=== PATIENT | male | born 1980 | race Caucasian/White ===

== ENCOUNTER 2018-02-11 01:13 | Inpatient (IN) ==
[2018-02-11] MEDS ORDERED: Isovue-370 500 ML INFUS..BTL IV ONE (02:12)
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
[2018-02-11] MEDS ORDERED: *HR* FentaNYL (PF) 100 MCG/2 ML VIAL IVP ONE (02:17)
[2018-02-11 02:47] LABS: Basophils % 0.3 %; Eosinophils # 0.2 K/mcL (0.0-0.6); Eosinophils % 1.3 %; Hematocrit 46.2 % (37.5-50.1); Immature Granulocytes % 0.4 % (0-4); Lymphocytes # 2.2 K/mcL (0.6-4.6); Lymphocytes % 16.2 %; Mean Corpuscular HGB Conc 34.6 g/dL (31.6-35.5); Mean Corpuscular Hemoglobin 32.4 pg (28.0-33.3); Mean Corpuscular Volume 93.5 fL (83.0-100.0); Mean Platelet Volume 9.6 fL (9.4-12.4); Monocytes # 1.3 K/mcL (0.0-1.3); Monocytes % 9.7 %; Neutrophils # 9.6 K/mcL (1.6-8.9); Platelet Count 274 K/mcL (140-400); Red Blood Count 4.94 M/mcL (4.19-5.50); Red Cell Distribution Width 13.3 % (11.5-14.5); Segmented Neutrophils % 72.1 %
[2018-02-11 02:52] LABS: Bilirubin,Urine Negative (Negative); Blood,Urine Negative (Negative); Clarity,Urine Clear (Clear); Color,Urine Yellow (Yellow); Glucose,Urine (UA) Normal (Normal); Ketones,Urine Negative (Negative); Leukocyte Esterase,Urine Trace (Negative); Nitrite,Urine Negative (Negative); Protein,Urine Trace mg/dL (Neg-Trace); Specific Gravity,Urine 1.017 (1.010-1.025); Urobilinogen,Urine Normal (Normal)
[2018-02-11 02:54] LABS: Bacteria,Urine None Seen per hpf (None-Few); Hyaline Casts,Urine None Seen per lpf (None-Few); Squamous Epithelial Cell,Urine Many per lpf (None-Few)
[2018-02-11 03:08] LABS: Alanine Aminotransferase 37 Units/L (7-52); Albumin 3.9 g/dL (3.5-5.7); Albumin/Globulin Ratio 1.4 (1.1-2.2); Alkaline Phosphatase 57 Units/L (34-104); Aspartate Amino Transferase 16 Units/L (13-39); BUN/Creatinine Ratio 9 (6-26); Bilirubin,Direct 0.1 mg/dL (0.0-0.2); Bilirubin,Indirect 0.6 mg/dL (0.0-1.2); Bilirubin,Total 0.7 mg/dL (0.3-1.0); Blood Urea Nitrogen 10 mg/dL (6-20); Calcium 8.8 mg/dL (8.6-10.3); Carbon Dioxide 24 mEq/L (23-29); Chloride 105 mEq/L (98-107); Creatine Kinase 108 Units/L (30-223); Globulin 2.8 g/dL (2.4-3.5); Glucose 131 mg/dL (70-105); Lipase 27 Units/L (11-82); Osmolality,Calculated 287 (280-300); Potassium 3.5 mEq/L (3.5-5.1); Sodium 138 mEq/L (136-145); Total Protein 6.7 g/dL (6.4-8.9); eGFR For Non-African Americans > 60 (> 60)
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
[2018-02-11] MEDS ORDERED: Piperacillin/Tazobactam 3.375 GM in 0.9 % Sodium Chloride Mini Bag 100 ML IVPB ONE (04:38)
[2018-02-11] MEDS ORDERED: *HR* Morphine Immed Rel 30 MG TABLET PO ONE (04:58)
[2018-02-11] MEDS ORDERED: Naloxone 0.4 MG/ML INJ IVP PRN (08:44)
[2018-02-11] MEDS ORDERED: Ketorolac 30 MG/ML VIAL IVP PRN (08:49)
[2018-02-11] MEDS ORDERED: OXYCODONE Oral CONC 10 MG/0.5 ML ORAL.SYG SL PRN (08:49)
[2018-02-11] MEDS ORDERED: *HR* Promethazine 25 MG/ML VIAL IVP PRN (08:58)
[2018-02-11] MEDS ORDERED: metroNIDAZOLE 500 MG TABLET PO SCH (09:00)
[2018-02-11] MEDS: 0.9 % Sodium Chloride 1,000 ML IVC SCH ×2 (09:29→16:30)
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
--- NOTE | 2018-02-11 15:17 | Internal Med History&Physical ---
Date of Encounter: 02/11/18 Time of Encounter: 08:00 Internal Medicine - H&P: HPI Chief complaint: Abdominal pain Admitted From: Emergency Dept Plans for Post Hospital Care: Home History of present illness: Mr. Webb is a 37 year old male w/PMH of HTN and GERD presents from the ED with chief complaint of abdominal pain since Thursday. Patient states symptoms have never happened before. Denies nausea, vomiting, fever, chills. Patient went to urgent care on Thursday and was placed on by mouth ciprofloxacin and Flagyl. Sx did not improve. No alleviating or aggravating factors. Denies bleeding. Reports trying to have BM yesterday when pain became severe. States pain is so bad he has difficulty walking. Patient denies recent illness, headache, changes in vision, cough, chest congestion, diarrhea, constipation, dizziness, lightheadedness, numbness, tingling, pre-syncope, or syncope. Past Med Surg Social Fam HX - Past Medical History Source: patient, old records reviewed, obtained from family Medical history: GERD, hypertension Psychiatric history: no psych history - Past Surgical History Surgical History: no surgical history - Social History Smoking Status: Never smoker Smokeless Tobacco Status: Yes Alcohol use: none Drug use: none Occupational status: employed Current living situation: Home, With Family Activity Level: Independent ambulation, Very active Recent Out of Country Travel Within the Last 8 Weeks: No Exposure or Possible Exposure to Illness During Travel: No - Family History Mother Race: Family Member Ethnicity: Non- Living Status: Still Living Hx Family Respiratory Disorders: Yes (COPD/Emphysema) Father History Unknown: Yes Race: Family Member Ethnicity: Non- Living Status: Still Living Sister Race: Family Member Ethnicity: Non- Living Status: Age at : 8 Cause of : Accident Internal Medicine - H&P: Meds Ranitidine HCl [Acid Aircraft Maintenance Supervisor] 150 mg PO BID 02/11/18 [History] 3 Allergy/AdvReac Type Severity Reaction Status Date / Time No Known Allergies Allergy Verified 02/11/18 01:16 All Systems PM: A 10-system review of systems was performed and is negative for pertinent findings except as documented above in the HPI. - Constitutional Constitutional: no chills, no fever(s), no night sweats - EENT Eyes: no change in vision, no discharge, no pain, no photophobia Ears: no ear discharge, no ear pain, no tinnitus Nose, mouth and throat: no dysphagia, no nasal discharge, no neck pain, no sore throat - Breasts Breasts: as per HPI - Cardiovascular Cardiovascular ROS IM: no chest pain, no diaphoresis, no dyspnea, no lightheadedness, no palpitations, no syncope - Respiratory Respiratory: no cough, no dyspnea, no wheezing, no excessive phlegm production - Gastrointestinal Gastrointestinal: as per HPI, abdominal pain, no diarrhea, no hematemesis, no hematochezia, no melena, no nausea, no vomiting - Genitourinary Genitourinary ROS male: as per HPI - Musculoskeletal Musculoskeletal ROS IM: no numbness, no tingling - Integumentary Integumentary IM: no rash, no unusual bruising - Neurological Neurological ROS: no confusion, no convulsions, no focal weakness, no numbness, no tingling, no tremor(s) - Psychiatric Psychiatric: as per HPI - Endocrine Endocrine IM: as per HPI - Hematologic/Lymphatic Hematologic/Lymphatic: no easy bruising - Allergic/Immunologic Allergic/Immunologic: as per HPI - Constitutional Vitals: Temp Pulse Resp BP Pulse Ox 98.8 F 82 18 132/84 97 02/11/18 12:06 02/11/18 12:06 02/11/18 12:06 02/11/18 12:06 02/11/18 12:06 General appearance: Present: cooperative, A&O X 3, pleasant, obese, severe distress (Abdominal pain), answers questions appropriately - Head Head exam: Present: atraumatic, normocephalic - Eye Eye exam: Present: PERRL, conjuntiva pink, sclera anicteric Pupils: Present: PERRL - ENT ENT exam: Present: normal exam - Neck Neck exam general surgery: Present: supple, trachea midline. Absent: lymphadenopathy - Respiratory Respiratory exam: Present: CTAB. Absent: accessory muscle use, rales, rhonchi, wheezes - Cardiovascular Cardiovascular exam: Present: RRR, +S1, +S2. Absent: diastolic murmur, gallop, rubs, systolic murmur - GI/Abdominal GI/Abdominal exam: Present: guarding, normal bowel sounds, soft, tenderness, no peritoneal signs. Absent: distended - Rectal Rectal exam: Present: deferred - Additional comments: exam deferred. - Extremities Exam Extremities exam: Present: warm, radial pulses palpable and symmetrical. Absent : calf tenderness, cyanotic, pedal edema - Back Exam Back exam: Present: normal inspection - Neurological Exam Neurological exam: Present: alert, CN II-XII intact, oriented X3, no focal deficits. Absent: pronater drift, facial droop, speech deficit - Psychiatric Psychiatric exam: Present: anxious - Skin Skin exam: Present: dry, intact Internal Med - H&P Results - Labs CBC & Chem 7: 02/11/18 02:24 02/11/18 02:24 - Diagnostic Studies CT scan - abdomen Additional comments: Impressions Abdomen/Pelvis CT 02/11/18 02:12 IMPRESSION: Findings are consistent with perforated sigmoid diverticulitis. Critical results were called by Dr. Robert Medina MD to Dr. Viera On 02/11/2018 at 04:33. D/ / Robert Medina MD / Robert Medina MD Interpreting Provider: Robert Medina MD - Assessment and plan (1) Perforation of sigmoid colon due to diverticulitis Current Visit: Yes Status: Acute Assessment and plan: Acute perforation of sigmoid colon due to diverticulitis according to CT of the abdomen/pelvis today. Patient failed outpatient oral antibiotic therapy likely due to severity of perforation. Currently patient does not appear toxic however he reports severe abdominal pain. Surgery consult ordered in ED and I appreciate the consult and recommendations. ID consult ordered and I appreciate the consult and recommendations. Patient placed on IVPB Zosyn in ED which is been discontinued per surgery. Patient received IVPB Flagyl and ciprofloxacin. Serial abdominal exams. Monitor a.m. labs. No plan for acute surgery but surgery will continue to follow. Stair-step pain medication for pain management. Nothing by mouth except ice chips and medications. Falls/ safety precautions and up with assist due to patient's report of difficulty with ambulation due to severe pain. Patient discussed with Dr. Bailon who agrees with plan of care. Patient is high risk due to new onset of perforated sigmoid diverticulitis, current leukocytosis, severe abdominal pain, high risk for sepsis, and risk factors. Inpatient. (2) Leukocytosis Current Visit: Yes Status: Acute Assessment and plan: Acute leukocytosis of 13.3 on admission likely secondary to perforated diverticulitis. Monitor patient and follow-up labs for signs of sepsis. Qualifiers: Leukocytosis type: unspecified Qualified Code(s): D72.829 - Elevated white blood cell count, unspecified (3) Abdominal pain Current Visit: Yes Status: Acute Assessment and plan: Acute abdominal pain that is generalized and likely secondary to diverticulitis. Stair-step pain medications for pain management. IVP Phenergan 12.5 mg every 6 hours when necessary for nausea and vomiting. Protonix 40 mg IVP daily per Surgery. Qualifiers: Abdominal location: periumbilical Qualified Code(s): R10.33 - Periumbilical pain (4) GERD (gastroesophageal reflux disease) Current Visit: Yes Status: Chronic Assessment and plan: Hx of chronic GERD. Protonix 40 mg IVP daily per surgery. Qualifiers: Esophagitis presence: esophagitis presence not specified Qualified Code(s) : K21.9 - Gastro-esophageal reflux disease without esophagitis (5) HTN (hypertension) Current Visit: Yes Status: Chronic Assessment and plan: Hx. of chronic HTN. Patient does not currently take HTN medication. Monitor patient vital signs. Hydralazine IVP 10 mg every 6 hours when necessary with parameters. Qualifiers: Hypertension type: essential hypertension Qualified Code(s): I10 - Essential (primary) hypertension (6) DVT prophylaxis Current Visit: Yes Status: Acute Assessment and plan: Bilateral SCDs on patient's LEs for DVT prophylaxis. - Time Spent With Patient Total time spent is greater than 50% in coordination of care (as documented) at patient's floor/unit and/or counseling patient: Greater than 35 minutes
--- NOTE | 2018-02-11 15:21 | Event Note ---
Date of Encounter: 02/11/18 Time of Encounter: 09:30 I have performed a face- to face examination of this patient and participated in formulation of aggarwal components of Assessment and plan with the GAMING WORKER. Briefly is a 37-year-old male with a first episode of perforated sigmoid diverticulitis. He is on IV antibiotics and his abdominal exam does show tenderness to palpation, guarding, peritoneal signs. His vital signs are stable and Gen. surgery has been consulted. I explained to the patient that given his young age and the perforation he might benefit from undergoing a full surgical evaluation with possible prophylactic sigmoid colectomy in the near future. We will defer the finality of these decisions to the surgical team. For now we will continue IV antibiotics and IV hydration. Keep him nothing by mouth until a surgical plan as created. Full H&P to follow.
[2018-02-11] MEDS ORDERED: Piperacillin/Tazobactam 3.375 GM in 0.9 % Sodium Chloride Mini Bag 100 ML IVPB SCH (16:00)
[2018-02-11] MEDS: MetroNIDAZOLE 500 MG/100 ML 500 MG/100 ML BAG IVPB SCH (17:00)
[2018-02-12] MEDS: MetroNIDAZOLE 500 MG/100 ML 500 MG/100 ML BAG IVPB SCH ×4 (00:09→23:39)
[2018-02-12] MEDS: 0.9 % Sodium Chloride 1,000 ML IVC SCH ×2 (04:07→16:15)
[2018-02-12 06:15] LABS: Basophils # 0.1 K/mcL (0.0-0.2); Basophils % 0.4 %; Eosinophils # 0.2 K/mcL (0.0-0.6); Eosinophils % 1.3 %; Hematocrit 43.7 % (37.5-50.1); Hemoglobin 14.8 g/dL (12.9-16.9); Immature Granulocytes % 0.4 % (0-4); Lymphocytes # 2.2 K/mcL (0.6-4.6); Lymphocytes % 17.1 %; Mean Corpuscular HGB Conc 33.9 g/dL (31.6-35.5); Mean Corpuscular Volume 94.4 fL (83.0-100.0); Mean Platelet Volume 9.4 fL (9.4-12.4); Monocytes # 1.4 K/mcL (0.0-1.3); Monocytes % 10.8 %; Neutrophils # 9.1 K/mcL (1.6-8.9); Platelet Count 265 K/mcL (140-400); Red Blood Count 4.63 M/mcL (4.19-5.50); Red Cell Distribution Width 13.3 % (11.5-14.5)
[2018-02-12 06:28] LABS: Alanine Aminotransferase 22 Units/L (7-52); Albumin 3.4 g/dL (3.5-5.7); Albumin/Globulin Ratio 1.3 (1.1-2.2); Alkaline Phosphatase 47 Units/L (34-104); Aspartate Amino Transferase 9 Units/L (13-39); BUN/Creatinine Ratio 10 (6-26); Bilirubin,Total 0.9 mg/dL (0.3-1.0); Blood Urea Nitrogen 10 mg/dL (6-20); Calcium 8.2 mg/dL (8.6-10.3); Carbon Dioxide 22 mEq/L (23-29); Chloride 108 mEq/L (98-107); Chol/HDL Ratio 5.6 (0-4.9); Cholesterol 151 mg/dL (< 200); Globulin 2.7 g/dL (2.4-3.5); Glucose 93 mg/dL (70-105); HDL Cholesterol 27 mg/dL (40-59); LDL Cholesterol,Calculated 102 mg/dL (0-99); Osmolality,Calculated 289 (280-300); Potassium 3.7 mEq/L (3.5-5.1); Sodium 140 mEq/L (136-145); Total Protein 6.1 g/dL (6.4-8.9); Triglycerides 110 mg/dL (< 150); eGFR For Non-African Americans > 60 (> 60)
[2018-02-12 07:59] LABS: Estimated Average Glucose 105 mg/dl; Hemoglobin A1C 5.3 %
[2018-02-12] MEDS: Pantoprazole 40 MG VIAL IVP SCH (08:18)
--- NOTE | 2018-02-12 08:27 | Event Note ---
Date of Encounter: 02/12/18 Time of Encounter: 08:26 Chart reviewed. Antibiotics changed by the general surgery team. No further recommendations from the ID team. Will sign off. Please re-consult if needed.
--- NOTE | 2018-02-12 10:27 | General Surgery Progress Note ---
<MalheurEva Fiona - Last Filed: 02/12/18 10:25> Date of Encounter: 02/12/18 Time of Encounter: 10:15 - Assessment and Plan (1) Perforation of sigmoid colon due to diverticulitis Current Visit: Yes Status: Acute Continue with conservative measures as patient has significant improvement May trial clear liquids today IV antibiotics- cipro and flagyl IV fluids- management per primary team Serial abdominal exams Supportive care IS every 1 hour while awake Ambulate hallways TID Patient will need an interval colonoscopy in 6-8 weeks (2) Leukocytosis Current Visit: Yes Status: Acute WBC 13.3>12.9 Repeat am CBC Qualifiers: Leukocytosis type: unspecified Qualified Code(s): D72.829 - Elevated white blood cell count, unspecified (3) GERD (gastroesophageal reflux disease) Current Visit: Yes Status: Chronic PPI therapy daily Qualifiers: Esophagitis presence: esophagitis presence not specified Qualified Code(s) : K21.9 - Gastro-esophageal reflux disease without esophagitis (4) DVT prophylaxis Current Visit: Yes Status: Acute EPCDs to bilateral lower extremities for DVT prophylaxis Ambulate hallways TID Subjective Patient reports: no new complaints, feels better, still having pain, pain is less, voiding w/o difficulty, no flatus, bowel movement (X 6), fever (Tmax 100, Tcurrent 99.4) Objective Vital Signs - Last 8 Hours Temp Pulse Resp BP Pulse Ox 02/12/18 08:45 95 02/12/18 06:52 99.4 F 77 15 124/76 95 02/12/18 03:29 98.3 F 81 16 105/65 93 Intake and Output 02/11/18 02/12/18 02/12/18 23:59 07:59 15:59 Intake Total 2300 / 2300 100 / 100 Balance 2300 / 2300 100 / 100 Intake: IV Fluids 2300 / 2300 100 / 100 0.9 % Sodium Chloride 1,000 ML 2000 / 2000 @ 150 mls/hr IVC .[id number] [facility] Rx #:[id number] Cipro Premix 400 MG/200 ML 400 200 / 200 mg In 200 ml @ 200 mls/hr IVPB Q12HR [facility] Rx#:[id number] Flagyl Premix 500 MG/100 ML 500 100 / 100 100 / 100 mg In 100 ml @ 100 mls/hr IVPB Q8HR [facility] Rx#:[id number] - General physical appearance well developed, well nourished, no distress - Eyes normal ocular movement - ENT normal mucosa, atraumatic, normocephalic - Neck Neck exam: trachea midline - Respiratory normal expansion, normal respiratory effort, clear to auscultation - Cardiovascular Cardiovascular exam: Present: RRR - Abdomen Abdomen: Present: bowel sounds present, soft, tender (minimal and improving) Abdominal Tenderness: suprapubic - Neurologic CN 2-12 grossly intact - Psychiatric oriented to time, oriented to person, oriented to place, speech is normal, memory intact - Labs 02/12/18 05:41 02/12/18 05:41 Diabetes panel 02/12/18 02/12/18 Range/Units 05:41 05:41 Sodium 140 (136-145) mEq/L Potassium 3.7 (3.5-5.1) mEq/L Chloride 108 H (98-107) mEq/L Carbon Dioxide 22 L (23-29) mEq/L BUN 10 (6-20) mg/dL Creatinine 1.00 (0.70-1.30) mg/dL Glucose 93 (70-105) mg/dL Hemoglobin A1c 5.3 ( - 5.6) % Calcium 8.2 L (8.6-10.3) mg/dL AST 9 L (13-39) Units/L ALT 22 (7-52) Units/L Alkaline Phosphatase 47 (34-104) Units/L Albumin 3.4 L (3.5-5.7) g/dL Triglycerides 110 (< 150) mg/dL HDL Cholesterol 27 L (40-59) mg/dL Calcium panel 02/12/18 Range/Units 05:41 Calcium 8.2 L (8.6-10.3) mg/dL Albumin 3.4 L (3.5-5.7) g/dL Pituitary panel 02/12/18 Range/Units 05:41 Sodium 140 (136-145) mEq/L Potassium 3.7 (3.5-5.1) mEq/L Chloride 108 H (98-107) mEq/L Carbon Dioxide 22 L (23-29) mEq/L BUN 10 (6-20) mg/dL Creatinine 1.00 (0.70-1.30) mg/dL Glucose 93 (70-105) mg/dL Calcium 8.2 L (8.6-10.3) mg/dL Adrenal panel 02/12/18 Range/Units 05:41 Sodium 140 (136-145) mEq/L Potassium 3.7 (3.5-5.1) mEq/L Chloride 108 H (98-107) mEq/L Carbon Dioxide 22 L (23-29) mEq/L BUN 10 (6-20) mg/dL Creatinine 1.00 (0.70-1.30) mg/dL Glucose 93 (70-105) mg/dL Calcium 8.2 L (8.6-10.3) mg/dL Total Bilirubin 0.9 (0.3-1.0) mg/dL AST 9 L (13-39) Units/L ALT 22 (7-52) Units/L Alkaline Phosphatase 47 (34-104) Units/L Albumin 3.4 L (3.5-5.7) g/dL Consult Discharge Plan - Plan Additional Instructions: Low fiber diet for the next 6-8 weeks Referrals: NONE,PCP [Primary Care Provider] - Wali Murray MD [Non-Partnered Physician] - 02/24/18 2:05 pm (hospital follow -up; discuss colonoscopy) Prescriptions: Ciprofloxacin [Cipro] 500 mg PO BID #20 tablet metroNIDAZOLE [Flagyl] 500 mg PO TID #30 tablet - Attending Attestation For this encounter, I have reviewed the CONVEYOR OPERATOR or PA documentation, treatment plan, and medical decision making; and I have had face to face time with this patient. <Wali Murray - Last Filed: 02/12/18 16:06> Date of Encounter: 02/12/18 - Assessment and Plan (1) Diverticulitis Current Visit: Yes Status: Acute (2) Leukocytosis Current Visit: Yes Status: Acute Qualifiers: Leukocytosis type: unspecified Qualified Code(s): D72.829 - Elevated white blood cell count, unspecified (3) GERD (gastroesophageal reflux disease) Current Visit: Yes Status: Chronic Qualifiers: Esophagitis presence: esophagitis presence not specified Qualified Code(s) : K21.9 - Gastro-esophageal reflux disease without esophagitis (4) Abdominal pain Current Visit: Yes Status: Acute Qualifiers: Abdominal location: periumbilical Qualified Code(s): R10.33 - Periumbilical pain Objective Vital Signs - Last 8 Hours Temp Pulse Resp BP Pulse Ox 02/12/18 15:31 99.2 F 72 18 138/94 99 02/12/18 11:08 99.0 F 85 15 127/79 97 02/12/18 08:45 95 Intake and Output 02/12/18 02/12/18 02/12/18 07:59 15:59 23:59 Intake Total 100 / 100 Balance 100 / 100 Intake: IV Fluids 100 / 100 Flagyl Premix 500 MG/100 ML 500 100 / 100 mg In 100 ml @ 100 mls/hr IVPB Q8HR [facility] Rx#:[id number] - Labs 02/12/18 05:41 02/12/18 05:41 Diabetes panel 02/12/18 02/12/18 Range/Units 05:41 05:41 Sodium 140 (136-145) mEq/L Potassium 3.7 (3.5-5.1) mEq/L Chloride 108 H (98-107) mEq/L Carbon Dioxide 22 L (23-29) mEq/L BUN 10 (6-20) mg/dL Creatinine 1.00 (0.70-1.30) mg/dL Glucose 93 (70-105) mg/dL Hemoglobin A1c 5.3 ( - 5.6) % Calcium 8.2 L (8.6-10.3) mg/dL AST 9 L (13-39) Units/L ALT 22 (7-52) Units/L Alkaline Phosphatase 47 (34-104) Units/L Albumin 3.4 L (3.5-5.7) g/dL Triglycerides 110 (< 150) mg/dL HDL Cholesterol 27 L (40-59) mg/dL Calcium panel 02/12/18 Range/Units 05:41 Calcium 8.2 L (8.6-10.3) mg/dL Albumin 3.4 L (3.5-5.7) g/dL Pituitary panel 02/12/18 Range/Units 05:41 Sodium 140 (136-145) mEq/L Potassium 3.7 (3.5-5.1) mEq/L Chloride 108 H (98-107) mEq/L Carbon Dioxide 22 L (23-29) mEq/L BUN 10 (6-20) mg/dL Creatinine 1.00 (0.70-1.30) mg/dL Glucose 93 (70-105) mg/dL Calcium 8.2 L (8.6-10.3) mg/dL Adrenal panel 02/12/18 Range/Units 05:41 Sodium 140 (136-145) mEq/L Potassium 3.7 (3.5-5.1) mEq/L Chloride 108 H (98-107) mEq/L Carbon Dioxide 22 L (23-29) mEq/L BUN 10 (6-20) mg/dL Creatinine 1.00 (0.70-1.30) mg/dL Glucose 93 (70-105) mg/dL Calcium 8.2 L (8.6-10.3) mg/dL Total Bilirubin 0.9 (0.3-1.0) mg/dL AST 9 L (13-39) Units/L ALT 22 (7-52) Units/L Alkaline Phosphatase 47 (34-104) Units/L Albumin 3.4 L (3.5-5.7) g/dL - Attending Attestation I have personally seen and examined the patient. I have reviewed pertinent labs , imaging, progress notes, including this one. I agree with the above assessment and plan and wish to include the following... wbc improved; afebrile; significant decrease in pain; VSS okay for clears; may advance diet over the weekend follow up with me in 2 weeks to schedule for interval colonoscopy
--- NOTE | 2018-02-12 10:57 | Internal Med Progress Note ---
Hospitalist Progress Note - Encounter Date of Encounter: 02/12/18 Time of Encounter: 10:00 - Subjective Interval History: Patient seen and examined at bedside. Pt. resting comfortably in bed and states that his pain is much improved since yesterday, rating it as a 1/10. States he can ambulate better and has been up out of bed several times w/o incident or pain. Reports abdominal pain is now minimizing. Discussed improvement in WBC from 13.3 to 12.9 today and how we will continue IVPB ciprofloxacin and Flagyl. Patient was seen by surgery with recommendation to advance to clears and ambulation TID. Pt. expresses understanding and agreement w/discussed plan of care. - Exam Vitals: Temp Pulse Resp BP Pulse Ox 99.4 F 77 15 124/76 95 02/12/18 06:52 02/12/18 06:52 02/12/18 06:52 02/12/18 06:52 02/12/18 08:45 Exam: PHYSICAL EXAMINATION: GENERAL: The patient is a well-developed, well-nourished male in no apparent distress. Alert and oriented x3. HEENT: Head is normocephalic and atraumatic. Extraocular muscles are intact. Pupils are equal, round, and reactive to light and accommodation. Nares appeared normal. Mouth is well hydrated and without lesions. Mucous membranes are moist. NECK: Supple. No carotid bruits. No lymphadenopathy or thyromegaly. LUNGS: Clear to auscultation. HEART: Regular rate and rhythm without murmur. ABDOMEN: Soft, and nondistended. Positive bowel sounds. No hepatosplenomegaly was noted. Some tenderness noted to generalized abdominal area. Abdomen is not rigid. EXTREMITIES: Without any cyanosis, clubbing, rash, lesions or edema. NEUROLOGIC: Cranial nerves II through XII are grossly intact. PSYCHIATRIC: Normal mood and affect. - Assessment and Plan (1) Perforation of sigmoid colon due to diverticulitis Current Visit: Yes Status: Acute Assessment and Plan: WBC improved to 12.9 today from 13.3 yesterday. Patient receiving IVPB Flagyl and ciprofloxacin. Serial abdominal exams. Still no plan for acute surgery but surgery will continue to follow. Stair-step pain medication for pain management. Diet to be advanced to clears per Surgery.Pt reports ambulating several times today and states that he is able to walk w/o the level of pain that he had yesterday. Encouraged to ambulate TID. (2) Leukocytosis Current Visit: Yes Status: Acute Assessment and Plan: WBC improved to 12.9 today from 13.3 yesterday. Continue IVPB ciprofloxacin and Flagyl. Monitor patient and follow-up labs. (3) Abdominal pain Current Visit: Yes Status: Acute Assessment and Plan: Much improved according to pt. Rates pain as 1/10 on exam. Continue stair-step pain medications for pain management. IVP Phenergan 12.5 mg every 6 hours when necessary for nausea and vomiting. Protonix 40 mg IVP daily per Surgery. (4) GERD (gastroesophageal reflux disease) Current Visit: Yes Status: Chronic Assessment and Plan: Hx of chronic GERD. Protonix 40 mg IVP daily per surgery. (5) HTN (hypertension) Current Visit: Yes Status: Chronic Assessment and Plan: Hx. of chronic HTN. Patient does not currently take HTN medication. Monitor patient vital signs. Hydralazine IVP 10 mg every 6 hours when necessary with parameters. (6) DVT prophylaxis Current Visit: Yes Status: Acute Assessment and Plan: Bilateral SCDs on patient's LEs for DVT prophylaxis. - Time Spent with Patient Total time spent is greater than 50% in coordination of care (as documented) at patient's floor/unit and/or counseling patient: less than 15 minutes Plan of Care Discussed with: patient Internal Medicine: Result - Labs CBC & Chem 7: 02/12/18 05:41 02/12/18 05:41 Labs: Short CBC 02/12/18 Range/Units 05:41 WBC 12.9 H (4.3-11.1) K/mcL Hgb 14.8 (12.9-16.9) g/dL Hct 43.7 (37.5-50.1) % Plt Count 265 (140-400) K/mcL Neutrophils # 9.1 H (1.6-8.9) K/mcL BMP 02/12/18 05:41 Sodium 140 Potassium 3.7 Chloride 108 H Carbon Dioxide 22 L BUN 10 Creatinine 1.00 Glucose 93 Calcium 8.2 L Liver Function 02/12/18 Range/Units 05:41 Total Bilirubin 0.9 (0.3-1.0) mg/dL AST 9 L (13-39) Units/L ALT 22 (7-52) Units/L Alkaline Phosphatase 47 (34-104) Units/L Albumin 3.4 L (3.5-5.7) g/dL Consult Discharge Plan - Plan Additional Instructions: Low fiber diet for the next 6-8 weeks Referrals: Wali Murray MD [Non-Partnered Physician] - 02/24/18 2:05 pm (hospital follow -up; discuss colonoscopy) NONE,PCP [Primary Care Provider] - Prescriptions: Ciprofloxacin [Cipro] 500 mg PO BID #20 tablet metroNIDAZOLE [Flagyl] 500 mg PO TID #30 tablet (2) Leukocytosis Qualifiers: Leukocytosis type: unspecified Qualified Code(s): D72.829 - Elevated white blood cell count, unspecified (3) Abdominal pain Qualifiers: Abdominal location: periumbilical Qualified Code(s): R10.33 - Periumbilical pain (4) GERD (gastroesophageal reflux disease) Qualifiers: Esophagitis presence: esophagitis presence not specified Qualified Code(s): K21.9 - Gastro-esophageal reflux disease without esophagitis (5) HTN (hypertension) Qualifiers: Hypertension type: essential hypertension Qualified Code(s): I10 - Essential (primary) hypertension
[2018-02-13 05:51] LABS: Basophils # 0.1 K/mcL (0.0-0.2); Basophils % 0.6 %; Eosinophils # 0.3 K/mcL (0.0-0.6); Eosinophils % 2.2 %; Hemoglobin 14.5 g/dL (12.9-16.9); Immature Granulocytes % 0.4 % (0-4); Lymphocytes # 2.8 K/mcL (0.6-4.6); Lymphocytes % 22.9 %; Mean Corpuscular HGB Conc 34.5 g/dL (31.6-35.5); Mean Corpuscular Volume 92.7 fL (83.0-100.0); Mean Platelet Volume 9.3 fL (9.4-12.4); Monocytes # 1.1 K/mcL (0.0-1.3); Monocytes % 8.8 %; Platelet Count 291 K/mcL (140-400); Red Blood Count 4.53 M/mcL (4.19-5.50); Red Cell Distribution Width 13.3 % (11.5-14.5); Segmented Neutrophils % 65.1 %
[2018-02-13 06:04] LABS: Neutrophils # 7.9 K/mcL (1.6-8.9)
[2018-02-13 06:15] LABS: Alanine Aminotransferase 19 Units/L (7-52); Albumin 3.2 g/dL (3.5-5.7); Albumin/Globulin Ratio 1.1 (1.1-2.2); Alkaline Phosphatase 50 Units/L (34-104); Aspartate Amino Transferase 11 Units/L (13-39); BUN/Creatinine Ratio 12 (6-26); Bilirubin,Total 0.4 mg/dL (0.3-1.0); Blood Urea Nitrogen 11 mg/dL (6-20); Calcium 8.1 mg/dL (8.6-10.3); Carbon Dioxide 22 mEq/L (23-29); Chloride 109 mEq/L (98-107); Globulin 2.9 g/dL (2.4-3.5); Glucose 110 mg/dL (70-105); Osmolality,Calculated 286 (280-300); Potassium 3.6 mEq/L (3.5-5.1); Sodium 138 mEq/L (136-145); Total Protein 6.1 g/dL (6.4-8.9); eGFR For Non-African Americans > 60 (> 60)
[2018-02-13 06:41] LABS: Platelet Estimate Normal (Normal); Reactive Lymphocytes Present (Not Present)
[2018-02-13] MEDS: MetroNIDAZOLE 500 MG/100 ML 500 MG/100 ML BAG IVPB SCH (08:41)
[2018-02-13] MEDS: Pantoprazole 40 MG VIAL IVP SCH (08:43)
[2018-02-13] MEDS: 0.9 % Sodium Chloride 1,000 ML IVC SCH ×3 (08:49→08:50)
[2018-02-13 12:18] VITALS: BP 177/128
--- NOTE | 2018-02-13 12:57 | General Surgery Progress Note ---
<Tiffanie Ordaz E - Last Filed: 02/13/18 12:54> Date of Encounter: 02/13/18 Time of Encounter: 12:54 - Assessment and Plan (1) Perforation of sigmoid colon due to diverticulitis Status: Acute Patient has had significant improvement Is tolerating normal diet. Oral antibiotics for a total of 10 days of treatment upon discharge Is okay to discharge at a surgical standpoint at this time Surgery will sign off at this time, thank you for involving us in this patient' s care, if you have any questions or concerns, please feel free to contact us at any time (2) GERD (gastroesophageal reflux disease) Status: Chronic PPI therapy Qualifiers: Esophagitis presence: esophagitis presence not specified Qualified Code(s) : K21.9 - Gastro-esophageal reflux disease without esophagitis Subjective Patient reports: feels better, flatus, bowel movement Objective Vital Signs - Last 8 Hours Temp Pulse Resp BP Pulse Ox 02/13/18 12:11 98.1 F 62 18 177/128 95 02/13/18 09:13 97 02/13/18 08:01 98.4 F 73 18 122/76 97 Intake and Output 02/12/18 02/13/18 02/13/18 23:59 07:59 15:59 Intake Total 500 / 500 100 / 100 300 / 300 Balance 500 / 500 100 / 100 300 / 300 Intake: IV Fluids 500 / 500 100 / 100 300 / 300 Cipro Premix 400 MG/200 ML 400 400 / 400 200 / 200 mg In 200 ml @ 200 mls/hr IVPB Q12HR [facility] Rx#:[id number] Flagyl Premix 500 MG/100 ML 500 100 / 100 100 / 100 100 / 100 mg In 100 ml @ 100 mls/hr IVPB Q8HR [facility] Rx#:[id number] Other: Weight 105 kg Patient Weight 02/13/18 23:59 Weight 105 kg - General physical appearance well developed, well nourished, no distress - Respiratory normal expansion, normal respiratory effort, clear to auscultation - Cardiovascular Cardiovascular exam: Present: RRR, no murmurs/rubs/gallops - Abdomen Abdomen: Present: bowel sounds present, soft, non tender - Integumentary no rash, no growths, no abnormal pigmentation - Musculoskeletal normal posture - Psychiatric oriented to time, oriented to person, oriented to place - Labs 02/13/18 05:19 02/13/18 05:19 Diabetes panel 02/13/18 Range/Units 05:19 Sodium 138 (136-145) mEq/L Potassium 3.6 (3.5-5.1) mEq/L Chloride 109 H (98-107) mEq/L Carbon Dioxide 22 L (23-29) mEq/L BUN 11 (6-20) mg/dL Creatinine 0.91 (0.70-1.30) mg/dL Glucose 110 H (70-105) mg/dL Calcium 8.1 L (8.6-10.3) mg/dL AST 11 L (13-39) Units/L ALT 19 (7-52) Units/L Alkaline Phosphatase 50 (34-104) Units/L Albumin 3.2 L (3.5-5.7) g/dL Calcium panel 02/13/18 Range/Units 05:19 Calcium 8.1 L (8.6-10.3) mg/dL Albumin 3.2 L (3.5-5.7) g/dL Pituitary panel 02/13/18 Range/Units 05:19 Sodium 138 (136-145) mEq/L Potassium 3.6 (3.5-5.1) mEq/L Chloride 109 H (98-107) mEq/L Carbon Dioxide 22 L (23-29) mEq/L BUN 11 (6-20) mg/dL Creatinine 0.91 (0.70-1.30) mg/dL Glucose 110 H (70-105) mg/dL Calcium 8.1 L (8.6-10.3) mg/dL Adrenal panel 02/13/18 Range/Units 05:19 Sodium 138 (136-145) mEq/L Potassium 3.6 (3.5-5.1) mEq/L Chloride 109 H (98-107) mEq/L Carbon Dioxide 22 L (23-29) mEq/L BUN 11 (6-20) mg/dL Creatinine 0.91 (0.70-1.30) mg/dL Glucose 110 H (70-105) mg/dL Calcium 8.1 L (8.6-10.3) mg/dL Total Bilirubin 0.4 (0.3-1.0) mg/dL AST 11 L (13-39) Units/L ALT 19 (7-52) Units/L Alkaline Phosphatase 50 (34-104) Units/L Albumin 3.2 L (3.5-5.7) g/dL Consult Discharge Plan - Plan Instructions: Ciprofloxacin (By mouth), Metronidazole (By mouth), Diverticulitis (DC), Perforated Bowel (DC) Additional Instructions: Low fiber diet for the next 6-8 weeks Referrals: Wali Murray MD [Non-Partnered Physician] - 02/24/18 2:05 pm (hospital follow -up; discuss colonoscopy) NONE,PCP [Primary Care Provider] - (Please call to get set up with a primary care provider) Prescriptions: Ciprofloxacin [Cipro] 500 mg PO BID #20 tablet metroNIDAZOLE [Flagyl] 500 mg PO TID #30 tablet <Ananya Deal - Last Filed: 02/13/18 15:25> Date of Encounter: 02/13/18 - Assessment and Plan (1) Abdominal pain Status: Resolved resolved Qualifiers: Abdominal location: periumbilical Qualified Code(s): R10.33 - Periumbilical pain (2) Leukocytosis Status: Acute recommend repeat cbc with diff in 1 week and have faxed to Dr Murray for reviwe, patient will see Dr Murray in followup in 2 weeks recommned DC on po cipro/flagyl for a total of 10 days of antibiotic treatement Qualifiers: Leukocytosis type: unspecified Qualified Code(s): D72.829 - Elevated white blood cell count, unspecified (3) Perforation of sigmoid colon due to diverticulitis Status: Acute (4) Perforation of sigmoid colon due to diverticulitis Status: Acute patients pain has completely resolved he has tolerated regular diet of mcdonalds his significant other brought in ok to DC from surgery standpoint and to follow up as outpatient with Dr Murray in two weeks DC with cipro/flagyl for total treatment of two weeks repeat CBC in 1 week as outpatient and fax to dr murray Subjective Patient reports: feels better, tolerating liquids well, flatus, bowel movement, afebrile Narrative: denies any abdominal pain Objective Vital Signs - Last 8 Hours Temp Pulse Resp BP Pulse Ox 02/13/18 12:11 98.1 F 62 18 177/128 95 02/13/18 09:13 97 02/13/18 08:01 98.4 F 73 18 122/76 97 Intake and Output 02/12/18 02/13/18 02/13/18 23:59 07:59 15:59 Intake Total 500 / 500 100 / 100 300 / 300 Balance 500 / 500 100 / 100 300 / 300 Intake: IV Fluids 500 / 500 100 / 100 300 / 300 Cipro Premix 400 MG/200 ML 400 400 / 400 200 / 200 mg In 200 ml @ 200 mls/hr IVPB Q12HR [facility] Rx#:[id number] Flagyl Premix 500 MG/100 ML 500 100 / 100 100 / 100 100 / 100 mg In 100 ml @ 100 mls/hr IVPB Q8HR [facility] Rx#:[id number] Other: Weight 105 kg Patient Weight 02/13/18 23:59 Weight 105 kg - General physical appearance well developed, well nourished, no distress - Eyes PERRL, normal ocular movement - ENT normal mucosa, normocephalic - Neck Neck exam: trachea midline - Respiratory normal expansion, normal respiratory effort - Cardiovascular Cardiovascular exam: Present: RRR - Abdomen Abdomen: Present: bowel sounds present, soft, non tender. Absent: distended, guarding, rebound - Integumentary no rash, no growths - Neurologic CN 2-12 grossly intact - Musculoskeletal normal posture - Psychiatric oriented to time, oriented to person, oriented to place, memory intact - Labs 02/13/18 05:19 02/13/18 05:19 Diabetes panel 02/13/18 Range/Units 05:19 Sodium 138 (136-145) mEq/L Potassium 3.6 (3.5-5.1) mEq/L Chloride 109 H (98-107) mEq/L Carbon Dioxide 22 L (23-29) mEq/L BUN 11 (6-20) mg/dL Creatinine 0.91 (0.70-1.30) mg/dL Glucose 110 H (70-105) mg/dL Calcium 8.1 L (8.6-10.3) mg/dL AST 11 L (13-39) Units/L ALT 19 (7-52) Units/L Alkaline Phosphatase 50 (34-104) Units/L Albumin 3.2 L (3.5-5.7) g/dL Calcium panel 02/13/18 Range/Units 05:19 Calcium 8.1 L (8.6-10.3) mg/dL Albumin 3.2 L (3.5-5.7) g/dL Pituitary panel 02/13/18 Range/Units 05:19 Sodium 138 (136-145) mEq/L Potassium 3.6 (3.5-5.1) mEq/L Chloride 109 H (98-107) mEq/L Carbon Dioxide 22 L (23-29) mEq/L BUN 11 (6-20) mg/dL Creatinine 0.91 (0.70-1.30) mg/dL Glucose 110 H (70-105) mg/dL Calcium 8.1 L (8.6-10.3) mg/dL Adrenal panel 02/13/18 Range/Units 05:19 Sodium 138 (136-145) mEq/L Potassium 3.6 (3.5-5.1) mEq/L Chloride 109 H (98-107) mEq/L Carbon Dioxide 22 L (23-29) mEq/L BUN 11 (6-20) mg/dL Creatinine 0.91 (0.70-1.30) mg/dL Glucose 110 H (70-105) mg/dL Calcium 8.1 L (8.6-10.3) mg/dL Total Bilirubin 0.4 (0.3-1.0) mg/dL AST 11 L (13-39) Units/L ALT 19 (7-52) Units/L Alkaline Phosphatase 50 (34-104) Units/L Albumin 3.2 L (3.5-5.7) g/dL - Attending Attestation I examined this patient and my medical decision-making was reviewed with the Resident Physician. I agree with the documented findings, disposition and treatment plan as described except to the extent set forth below.
--- NOTE | 2018-02-13 13:42 | Discharge Summary ---
- NOTES TO OUTPATIENT PROVIDER Notes to Outpatient Provider: Patient to follow-up with within [address] Murray with ordered to recheck white blood count. Patient also requests referral to Enrique Wolf C[facility] [place] [facility] his PCP. Orders not resulted at time of discharge: Pending orders 02/11/18 09:14 Culture,Blood [BC] Stat Date of Encounter: 02/13/18 Time of Encounter: 13:30 - Discharge Diagnosis (1) Perforation of sigmoid colon due to diverticulitis Priority: Primary Status: Acute Assessment and Plan: WBC improved to 12.2 today from 12.9 yesterday. Patient received IVPB Flagyl and ciprofloxacin overnight. Discussed patient with Dr. Deal of surgery who feels patient can be discharged on by mouth ciprofloxacin and Flagyl with follow -up to see Dr. Murray within 1 week. Patient started on clear liquid diet yesterday which he tolerated well. Advanced to solid foods today which he also tolerated well. Repeat WBC within 1 week. (2) Leukocytosis Priority: Primary Status: Acute Assessment and Plan: WBC improved to 12.2 today from 12.9 yesterday. Received IVPB ciprofloxacin and Flagyl overnight. Will be discharged on by mouth ciprofloxacin and Flagyl with follow-up with Dr. Murray in one week. Repeat WBC within one week per discussion w // Toyin who feels patient is ready for discharge based on his progress. Qualifiers: Leukocytosis type: unspecified Qualified Code(s): D72.829 - Elevated white blood cell count, unspecified (3) Abdominal pain Priority: Primary Status: Acute Assessment and Plan: Much improved according to pt. Rates pain as 0/10 on exam. Follow-up w/Dr. Murray w/i one week. Qualifiers: Abdominal location: periumbilical Qualified Code(s): R10.33 - Periumbilical pain (4) GERD (gastroesophageal reflux disease) Priority: Secondary Status: Chronic Assessment and Plan: Hx of chronic GERD. Continue ranitidine home medication twice daily. Qualifiers: Esophagitis presence: esophagitis presence not specified Qualified Code(s) : K21.9 - Gastro-esophageal reflux disease without esophagitis (5) HTN (hypertension) Priority: Secondary Status: Chronic Assessment and Plan: Hx. of chronic HTN. Patient does not currently take HTN medication. Patient requests physician referral to Enrique Wolf CNP of [facility] who will monitor pts. HTN. Qualifiers: Hypertension type: essential hypertension Qualified Code(s): I10 - Essential (primary) hypertension Hospital course: Mr. Webb is a 37 year old male who originally presented with abdominal pain due to perforation of sigmoid colon related to diverticulitis. Patient placed on IV piggyback Flagyl and ciprofloxacin with improvement in symptoms. Surgery stated no plan for acute surgery but will follow-up with patient within 1 week of discharge w/Dr. Murray. Patient to continue by mouth ciprofloxacin and Flagyl 5 days and then discontinue d/t improving leukocytosis of 12.2 today. Patient to return to emergency department if symptoms worsen or continue. Discussed plan to discharge per surgery's recommendation with patient who expresses understanding and agreement with plan of care. Discharge discussed with: patient, family, nurse - Time Spent with Patient Total time spent providing and/or coordinating discharge services: Less than 30 minutes - Discharge Medications Prescriptions: Ciprofloxacin [Cipro] 500 mg PO BID #20 tablet metroNIDAZOLE [Flagyl] 500 mg PO TID #30 tablet Home Medications: Ranitidine HCl [Acid Crtts] 150 mg PO BID 02/11/18 [History] Ciprofloxacin [Cipro] 500 mg PO BID #20 tablet 02/12/18 [Rx] metroNIDAZOLE [Flagyl] 500 mg PO TID #30 tablet 02/12/18 [Rx] Allergies/Adverse Reactions: 3 Allergy/AdvReac Type Severity Reaction Status Date / Time No Known Allergies Allergy Verified 02/11/18 01:16 Date of admission: 02/11/18 08:44 Primary care physician: PCP NONE Consults: 02/11/18 08:53 Consult to Infectious Diseases [CONS] Routine Consulting Provider: [facility] Reason for Consult: Pt. is 37 yo male who presents w/sx consistent w/ perforated sigmoid diverticulitis. Never had these sx before. Failed OP therapy @ Urgent Care on PO Cipro/Flagyl. Pt. now on IVPB Zosyn and PO Flagyl. Call Completed: Yes Discharging clinician: Nikos Mcghee Anticipated date of discharge: 02/13/18 - Constitutional Vitals: Temp Pulse Resp BP Pulse Ox 98.1 F 62 18 177/128 95 02/13/18 12:11 02/13/18 12:11 02/13/18 12:11 02/13/18 12:11 02/13/18 12:11 General appearance: Present: cooperative, A&O X 3, pleasant, no acute distress, obese, answers questions appropriately - Head Head exam: Present: atraumatic, normocephalic - Eye Eye exam: Present: PERRL, conjuntiva pink, sclera anicteric Pupils: Present: PERRL - ENT ENT exam: Present: normal exam - Neck Neck exam general surgery: Present: supple, trachea midline. Absent: lymphadenopathy - Respiratory Respiratory exam: Present: CTAB. Absent: accessory muscle use, rales, rhonchi, wheezes - Cardiovascular Cardiovascular exam: Present: RRR, +S1, +S2. Absent: diastolic murmur, gallop, rubs, systolic murmur - GI/Abdominal GI/Abdominal exam: Present: normal bowel sounds, soft, no peritoneal signs. Absent: distended, tenderness - Rectal Rectal exam: Present: deferred - Additional comments: exam deferred. - Extremities Exam Extremities exam: Present: warm, radial pulses palpable and symmetrical. Absent : calf tenderness, cyanotic, pedal edema - Back Exam Back exam: Present: normal inspection - Neurological Exam Neurological exam: Present: CN II-XII intact, oriented X3, no focal deficits. Absent: pronater drift, facial droop, speech deficit - Psychiatric Psychiatric exam: Present: normal affect, normal mood - Skin Skin exam: Present: dry, intact - Patient Status Disposition: Home, Self-Care Condition: Good Functional capacity at discharge: independent ambulation Overall status at discharge: patient is progressing back to baseline - Discharge Instructions Follow Up With: Wali Murray MD [Non-Partnered Physician] - 02/24/18 2:05 pm (hospital follow -up; discuss colonoscopy) NONE,PCP [Primary Care Provider] - (Please call to get set up with a primary care provider) Additional Instructions: Low fiber diet for the next 6-8 weeks - Diet and Activity Activity: increase activity as tolerated Diet: low fat, low cholesterol (Pt. instructed to finish the four days of PO Ciprofloxacin and Flagyl he has remaining that were prescribed prior to being admitted and to follow-up w/Dr. Murray within one week. WBC to be checked within one week per Dr. Deal. )
[2018-02-13] MEDS ORDERED: Pantoprazole 40 MG VIAL IVP SCH (18:00)
== END 2018-02-13 14:11 | disposition home or self-care (01) | DRG 392 ==
LOC: EMEROO 01:13 → 3BNU 01:13
PROVIDERS: ADMIT Family Medicine; ATTEND Family Medicine